=== PATIENT | female | born 1950 | race Caucasian/White ===

== ENCOUNTER 2017-12-11 09:21 | Inpatient (IN) | payer MEDICARE, MEDICAID ==
[~2017-12-11] VITALS: Ht 175.3 cm; Wt 153.1 kg
[2017-12-11] VITALS (14 sets, daily range): BP systolic 62–126; BP diastolic 30–50
[2017-12-11 09:45] LABS: BASOPHILS % (AUTO) 0 % (0-1); EOSINOPHILS # (AUTO) 0.1 X10'3 (0-0.9); EOSINOPHILS % (AUTO) 0.3 % (0-6); HEMATOCRIT 27.8 % (35.0-45.0); HEMOGLOBIN 8.8 g/dl (12.0-16.0); LYMPHOCYTES # (AUTO) 0.6 X10'3 (1.1-4.8); LYMPHOCYTES % (AUTO) 2.2 % (21-51); MEAN CORPUSCULAR HEMOGLOBIN 27.4 PG (27.0-31.0); MEAN CORPUSCULAR HGB CONC 31.8 % (33.0-36.5); MEAN CORPUSCULAR VOLUME 86.4 FL (78-98); MEAN PLATELET VOLUME 9.1 FL (7.4-10.4); MONOCYTES # (AUTO) 0.7 X10'3 (0-0.9); MONOCYTES % (AUTO) 2.6 % (2-12); NEUTROPHILS # (AUTO) 25.3 X10'3 (1.8-7.7); NEUTROPHILS % (AUTO) 94.9 % (42-75); PLATELET COUNT 118 X10'3 (140-440); RED BLOOD COUNT 3.22 X10'6 (4.20-5.60); RED CELL DISTRIBUTION WIDTH 18.7 % (11.5-14.5)
[2017-12-11 09:46] LABS: WHITE BLOOD COUNT 26.6 X10'3 (4.5-11.0)
[2017-12-11 09:56] LABS: INR 1.1 INR; PARTIAL THROMBOPLASTIN TIME 27 SECONDS (22-32); PROTHROMBIN TIME 11.4 SECONDS (9.0-12.0)
[2017-12-11] MEDS ORDERED: cefTAZidime inj 2 GM in normal saline 100ml IV soln 100 ML IV STA (09:59)
[2017-12-11] MEDS ORDERED: vancomycin/NS 1 GM ADD-VANTAGE 250 ML IV ONE ×2 (10:00→16:45)
[2017-12-11 10:02] LABS: ANISOCYTOSIS 2+; PLATELET ESTIMATE DECREASED; POIKILOCYTOSIS FEW; TOTAL CELLS COUNTED 100
[2017-12-11] MEDS ORDERED: pantoprazole 40 MG vial IV ONE (10:05)
[2017-12-11 10:14] LABS: ALBUMIN 2.3 G/DL (3.4-5.0); ALBUMIN/GLOBULIN RATIO 0.7 (1.1-1.5); ALKALINE PHOSPHATASE 55 IU/L (46-116); ANION GAP 20 (8-16); BILIRUBIN,TOTAL 0.6 MG/DL (0.1-1.0); CALCIUM 7.8 MG/DL (8.5-10.1); CHLORIDE 107 MMOL/L (99-107); CREATININE 6.86 MG/DL (0.40-0.90); GLUCOSE 102 MG/DL (70-104); POTASSIUM 5.3 MMOL/L (3.5-5.1); SODIUM 152 MMOL/L (135-145); TOTAL CARBON DIOXIDE 25.2 MMOL/L (24-32); TOTAL PROTEIN 5.7 G/DL (6.4-8.2); eGFR 6 ML/MIN
[2017-12-11 10:15] LABS: ALANINE AMINOTRANSFERASE 1944 U/L (12-78); ASPARTATE AMINO TRANSFERASE 1918 U/L (10-37); BLOOD UREA NITROGEN 179 MG/DL (7-18); BUN/CREATININE RATIO 26.1 (6.6-38.0); PHOSPHORUS 9.9 MG/DL (2.3-4.5)
[2017-12-11 10:26] LABS: ABG BASE EXCESS -6.9 mmol/L (-2.0-3.0); ABG HCO3 22.6 mmol/L (22.0-26.0); ABG OXYGEN SATURATION 99.1 % (95-98); ABG PH (T) 7.121 (7.350-7.450); ABG PO2 (T) 411.1 mmHg (83-108); ALLEN'S TEST Positive; FCOHb 0.3 % (0.5-1.5); FMetHb 0.1 % (0.3-1.12); FO2Hb 98.7 % (94-100); MINUTE VOLUME 10 L/min; PEEP 5 cm H2O; RESPIRATORY RATE 20 b/min; RESPIRATORY RATE (OBSERVED) 22 b/min; TIDAL VOLUME 400 mL; TOTAL HEMOGLOBIN 9.1 G/dl (12.0-16.0)
[2017-12-11] MEDS ORDERED: ondansetron/PF 4mg/2ml inj IV PRN (11:00)
[2017-12-11] MEDS ORDERED: acetaminophen 325mg tablet PO PRN ×2 (11:00)
[2017-12-11] MEDS ORDERED: ipratropium/albuterol 3ml nebule NEB PRN (11:00)
[2017-12-11 12:13] LABS: AMYLASE 331 U/L (25-115); LIPASE 187 U/L (73-393)
[2017-12-11] MEDS: NORepinephrine 8mg/ 250ml NS 250 ML IV SCH ×2 (12:13→22:24)
[2017-12-11 12:15] LABS: ABG OXYGEN SATURATION 97.6 % (95-98); ABG PCO2 (T) 112.4 mmHg (32.0-45.0); ABG PO2 (T) 158.3 mmHg (83-108); FCOHb 0.3 % (0.5-1.5); FMetHb 0.1 % (0.3-1.12); FO2Hb 97.2 % (94-100); MINUTE VOLUME 12 L/min; PEEP 5 cm H2O; RESPIRATORY RATE 24 b/min; RESPIRATORY RATE (OBSERVED) 30 b/min; TIDAL VOLUME 450 mL; TOTAL HEMOGLOBIN 10.2 G/dl (12.0-16.0)
[2017-12-11] MEDS ORDERED: normal saline 1000ML IV soln IVB ONE ×2 (12:20→13:55)
[2017-12-11] MEDS ORDERED: VECuronium br 10mg inj. IV ONE (12:45)
[2017-12-11] MEDS ORDERED: calcium chloride 100 MG/1 ML inj IV ONE ×2 (12:45→15:00)
[2017-12-11] MEDS ORDERED: calcium chloride inj. 1,000 MG in normal saline 100ml IV soln 90 ML IV ONE (12:50)
[2017-12-11] MEDS: EPICAL 5MG & 1000MG PER 250ML INFUSION IV PRN ×6 (13:36→18:36)
[2017-12-11] MEDS: vasopressin inj. 60 UNIT in normal saline 100ml IV soln 97 ML IV SCH (14:53)
[2017-12-11] MEDS ORDERED: atropine 0.1mg/ml 10ml syringe ONE (15:00)
[2017-12-11] MEDS ORDERED: epiNEPHrine 0.1mg/ml 10ml syringe ONE (15:00)
[2017-12-11] MEDS ORDERED: NORepinephrine 1 mg/ml inj IV ONE (15:00)
[2017-12-11] MEDS ORDERED: epiNEPHrine 1 mg/ml 30ml MDV ONE (15:00)
[2017-12-11] MEDS ORDERED: sodium bicarbonate (8.4%) 1 mEq/ml syringe ONE (15:00)
[2017-12-11 15:21] LABS: ABG BASE EXCESS -16.4 mmol/L (-2.0-3.0); ABG HCO3 12.5 mmol/L (22.0-26.0); ABG OXYGEN SATURATION 97.6 % (95-98); ABG PH (T) 7.067 (7.350-7.450); ABG PO2 (T) 134.7 mmHg (83-108); FCOHb 0.3 % (0.5-1.5); FMetHb 0.4 % (0.3-1.12); FO2Hb 96.9 % (94-100); MINUTE VOLUME 17 L/min; PATIENT TEMPERATURE 37.5; PEEP 5 cm H2O; RESPIRATORY RATE 26 b/min; RESPIRATORY RATE (OBSERVED) 26 b/min; TIDAL VOLUME 600 mL; TOTAL HEMOGLOBIN 7.7 G/dl (12.0-16.0)
[2017-12-11] MEDS ORDERED: dextrose 50%-water 50ml dispensing syringe IV ONE (15:49)
[2017-12-11] MEDS: pantoprazole 40MG/NS 100ML BAG 100 ML IV SCH ×3 (16:00→21:24)
[2017-12-11] MEDS ORDERED: dextrose 50%-water 50ml dispensing syringe IV PRN ×2 (16:00)
[2017-12-11] MEDS ORDERED: sodium chloride inj. 154 MEQ in Dextrose 10%-water IV solution 961.5 ML IV SCH (16:00)
[2017-12-11] MEDS ORDERED: heparin 1,000unit/ml 10ml vial 10 ML IV ONE (16:07)
[2017-12-11] MEDS ORDERED: albumin (human) 25% 100ml IV 100 ML IV PRN (16:10)
[2017-12-11] MEDS ORDERED: vancomycin/NS 1 GM ADD-VANTAGE 250 ML IV SCH (16:15)
[2017-12-11] MEDS ORDERED: heparin 1,000 units/ml 10ml inj HE ONE ×2 (16:15)
[2017-12-11] MEDS: DOBUTamine-DoBUTrex 500mg/D5W 250 ML IV SCH (18:10)
[2017-12-11] MEDS: Dextrose 10%-water IV solution 1,000 ML IV SCH (18:13)
[2017-12-11 18:42] LABS: HIV ANTIBODY 1&2 RAPID NON-REACTIVE (Neg)
[2017-12-11] MEDS: docusate sod 100mg capsule PO SCH (20:00)
[2017-12-11] MEDS: heparin, porcine 5000 units/ml vial SQ SCH (21:24)
[2017-12-11] MEDS: hydrocortisone sod succ/PF 100mg/2ml inj. IV SCH (21:24)
[2017-12-11] MEDS: mineral oil/petrolatum ophthal oint EACHEYE SCH (21:25)
[2017-12-12] VITALS (31 sets, daily range): BP systolic 106–137; BP diastolic 36–59
[2017-12-12 00:46] LABS: OXYGEN SATURATION (MIXED VEN) 44.5 % (60-80); PO2 MIXED VENOUS (TEMP COR) 27.5 mmHg (35-46)
[2017-12-12 00:46] LABS: ABG BASE EXCESS -9.8 mmol/L (-2.0-3.0); ABG HCO3 18.1 mmol/L (22.0-26.0); ABG OXYGEN SATURATION 94.9 % (95-98); ABG PCO2 (T) 48.6 mmHg (32.0-45.0); ABG PH (T) 7.186 (7.350-7.450); FCOHb 0.3 % (0.5-1.5); FMetHb 0.2 % (0.3-1.12); FO2Hb 94.4 % (94-100); MINUTE VOLUME 17 L/min; PATIENT TEMPERATURE 36.6; PEEP 5 cm H2O; RESPIRATORY RATE 26 b/min; RESPIRATORY RATE (OBSERVED) 30 b/min; TIDAL VOLUME 500 mL; TOTAL HEMOGLOBIN 9.3 G/dl (12.0-16.0)
[2017-12-12 01:34] LABS: ALBUMIN 2.2 G/DL (3.4-5.0); ALBUMIN/GLOBULIN RATIO 0.7 (1.1-1.5); ALKALINE PHOSPHATASE 78 IU/L (46-116); ANION GAP 19 (8-16); BLOOD UREA NITROGEN 142 MG/DL (7-18); BUN/CREATININE RATIO 26.2 (6.6-38.0); CALCIUM 7.6 MG/DL (8.5-10.1); CHLORIDE 106 MMOL/L (99-107); CREATININE 5.41 MG/DL (0.40-0.90); GLUCOSE 174 MG/DL (70-104); MAGNESIUM 2.5 MG/DL (1.5-2.4); PHOSPHORUS 7.7 MG/DL (2.3-4.5); SODIUM 146 MMOL/L (135-145); TOTAL CARBON DIOXIDE 21.5 MMOL/L (24-32); TOTAL PROTEIN 5.3 G/DL (6.4-8.2); eGFR 8 ML/MIN
[2017-12-12 01:47] LABS: ALANINE AMINOTRANSFERASE 2449 U/L (12-78); ASPARTATE AMINO TRANSFERASE 2220 U/L (10-37)
[2017-12-12 01:50] LABS: VANCOMYCIN,TROUGH 21.4 UG/ML (6.0-14.0)
[2017-12-12] MEDS: hydrocortisone sod succ/PF 100mg/2ml inj. IV SCH ×4 (02:02→20:46)
[2017-12-12] MEDS: mineral oil/petrolatum ophthal oint EACHEYE SCH ×4 (02:02→20:46)
[2017-12-12] MEDS: pantoprazole 40MG/NS 100ML BAG 100 ML IV SCH ×5 (02:02→22:36)
[2017-12-12 02:06] LABS: BASOPHILS % (AUTO) 0 % (0-1); EOSINOPHILS % (AUTO) 0 % (0-6); HEMATOCRIT 24.4 % (35.0-45.0); HEMOGLOBIN 7.9 g/dl (12.0-16.0); LYMPHOCYTES # (AUTO) 0.5 X10'3 (1.1-4.8); LYMPHOCYTES % (AUTO) 2.3 % (21-51); MEAN CORPUSCULAR HEMOGLOBIN 27.4 PG (27.0-31.0); MEAN CORPUSCULAR HGB CONC 32.3 % (33.0-36.5); MEAN CORPUSCULAR VOLUME 85.1 FL (78-98); MEAN PLATELET VOLUME 10.1 FL (7.4-10.4); MONOCYTES # (AUTO) 0.8 X10'3 (0-0.9); NEUTROPHILS # (AUTO) 18.9 X10'3 (1.8-7.7); NEUTROPHILS % (AUTO) 93.7 % (42-75); PLATELET COUNT 125 X10'3 (140-440); RED BLOOD COUNT 2.87 X10'6 (4.20-5.60); RED CELL DISTRIBUTION WIDTH 18.7 % (11.5-14.5); WHITE BLOOD COUNT 20.1 X10'3 (4.5-11.0)
[2017-12-12 02:33] LABS: NUCLEATED RED BLOOD CELLS 2 /100WBC (0-0); TOTAL CELLS COUNTED 100
[2017-12-12 02:34] LABS: ANISOCYTOSIS 2+; HYPOCHROMASIA 1+; PLATELET ESTIMATE DECREASED
[2017-12-12 02:36] LABS: ELLIPTOCYTES 1+; TARGET CELLS FEW
[2017-12-12] MEDS: VANCOMYCIN LEVEL IV SCH (03:00)
[2017-12-12] MEDS: NORepinephrine 8mg/ 250ml NS 250 ML IV SCH ×2 (04:18→14:24)
[2017-12-12 07:51] LABS: OXYGEN SATURATION (MIXED VEN) 72.7 % (60-80); PO2 MIXED VENOUS (TEMP COR) 42.1 mmHg (35-46)
[2017-12-12] MEDS: docusate sod 100mg capsule PO SCH ×2 (08:00→20:00)
[2017-12-12] MEDS ORDERED: vancomycin/NS 1 GM ADD-VANTAGE 250 ML IV PRN (08:00)
[2017-12-12] MEDS: heparin, porcine 5000 units/ml vial SQ SCH ×2 (08:00→20:00)
[2017-12-12] MEDS ORDERED: pantoprazole 40 MG vial IV SCH (08:00)
[2017-12-12 08:01] LABS: ABG BASE EXCESS -9.9 mmol/L (-2.0-3.0); ABG HCO3 18.5 mmol/L (22.0-26.0); ABG OXYGEN SATURATION 95.1 % (95-98); ABG PCO2 (T) 50.8 mmHg (32.0-45.0); ABG PH (T) 7.175 (7.350-7.450); ABG PO2 (T) 89.4 mmHg (83-108); FCOHb 0.3 % (0.5-1.5); FMetHb 0.2 % (0.3-1.12); FO2Hb 94.6 % (94-100); MINUTE VOLUME 14 L/min; PATIENT TEMPERATURE 36.2; PEEP 5 cm H2O; RESPIRATORY RATE 26 b/min; RESPIRATORY RATE (OBSERVED) 26 b/min; TIDAL VOLUME 500 mL; TOTAL HEMOGLOBIN 9.9 G/dl (12.0-16.0)
[2017-12-12 08:02] LABS: BASOPHILS % (AUTO) 0.1 % (0-1); EOSINOPHILS % (AUTO) 0 % (0-6); HEMATOCRIT 28.4 % (35.0-45.0); HEMOGLOBIN 9.2 g/dl (12.0-16.0); LYMPHOCYTES # (AUTO) 0.3 X10'3 (1.1-4.8); LYMPHOCYTES % (AUTO) 2.2 % (21-51); MEAN CORPUSCULAR HGB CONC 32.2 % (33.0-36.5); MEAN PLATELET VOLUME 9.8 FL (7.4-10.4); MONOCYTES # (AUTO) 0.4 X10'3 (0-0.9); MONOCYTES % (AUTO) 3.2 % (2-12); NEUTROPHILS # (AUTO) 12.2 X10'3 (1.8-7.7); NEUTROPHILS % (AUTO) 94.5 % (42-75); PLATELET COUNT 98 X10'3 (140-440); RED BLOOD COUNT 3.26 X10'6 (4.20-5.60); RED CELL DISTRIBUTION WIDTH 17.5 % (11.5-14.5); WHITE BLOOD COUNT 12.9 X10'3 (4.5-11.0)
[2017-12-12] MEDS: midazolam 100mg in NS 100ml 100 ML IV PRN (08:13)
[2017-12-12] MEDS: FENTANYL-0.9 % NACL/PF 100 ML IV PRN ×2 (08:14→21:46)
[2017-12-12 08:20] LABS: ALBUMIN 2.2 G/DL (3.4-5.0); ANION GAP 19 (8-16); CALCIUM 7.2 MG/DL (8.5-10.1); CHLORIDE 105 MMOL/L (99-107); GLUCOSE 260 MG/DL (70-104); MAGNESIUM 2.7 MG/DL (1.5-2.4); POTASSIUM 5.2 MMOL/L (3.5-5.1); SODIUM 145 MMOL/L (135-145); TOTAL CARBON DIOXIDE 20.6 MMOL/L (24-32); eGFR 7 ML/MIN
[2017-12-12 08:21] LABS: BLOOD UREA NITROGEN 158 MG/DL (7-18); BUN/CREATININE RATIO 27.7 (6.6-38.0)
[2017-12-12 08:23] LABS: TROPONIN I 8.32 NG/ML (0.0-0.05)
[2017-12-12 08:26] LABS: PLATELET ESTIMATE DECREASED; TOTAL CELLS COUNTED 100
[2017-12-12 08:27] LABS: ANISOCYTOSIS 2+; BURR CELLS 1+; ELLIPTOCYTES FEW; POLYCHROMASIA 1+
[2017-12-12] MEDS: nystatin 15 GM powder TP SCH ×3 (09:12→21:15)
[2017-12-12] MEDS: EPICAL 5MG & 1000MG PER 250ML INFUSION IV PRN ×3 (09:12)
[2017-12-12] MEDS ORDERED: albumin (human) 25% 100ml IV 100 ML IV PRN (09:40)
[2017-12-12] MEDS ORDERED: heparin 1,000 units/ml 10ml inj HE ONE ×2 (09:45)
[2017-12-12] MEDS ORDERED: mannitol 20% 250ml solution IV ONE (09:55)
[2017-12-12] MEDS: DOBUTamine-DoBUTrex 500mg/D5W 250 ML IV SCH (11:26)
[2017-12-12] MEDS ORDERED: ESCI20TA38 PO (14:22)
[2017-12-12] MEDS ORDERED: PRED10TA23 PO (14:22)
[2017-12-12] MEDS ORDERED: LEVO112T5 PO (14:22)
[2017-12-12] MEDS ORDERED: CARV-50 PO (14:23)
[2017-12-12] MEDS ORDERED: CLON1TAB4 PO (14:26)
[2017-12-12] MEDS ORDERED: LORA10TA7 PO (14:26)
[2017-12-12] MEDS ORDERED: POTA8TAB8 PO (14:26)
[2017-12-12] MEDS ORDERED: RISP1TAB13 PO (14:26)
[2017-12-12 14:27] LABS: ALBUMIN 2.1 G/DL (3.4-5.0); ANION GAP 19 (8-16); CALCIUM 7.1 MG/DL (8.5-10.1); CHLORIDE 105 MMOL/L (99-107); CREATININE 5.96 MG/DL (0.40-0.90); GLUCOSE 256 MG/DL (70-104); MAGNESIUM 2.7 MG/DL (1.5-2.4); POTASSIUM 5.1 MMOL/L (3.5-5.1); SODIUM 144 MMOL/L (135-145); TOTAL CARBON DIOXIDE 20.2 MMOL/L (24-32); eGFR 7 ML/MIN
[2017-12-12 14:28] LABS: BLOOD UREA NITROGEN 163 MG/DL (7-18); BUN/CREATININE RATIO 27.3 (6.6-38.0)
[2017-12-12 14:31] LABS: TROPONIN I 8.47 NG/ML (0.0-0.05)
[2017-12-12 15:41] LABS: ABG BASE EXCESS -9.5 mmol/L (-2.0-3.0); ABG HCO3 17.3 mmol/L (22.0-26.0); ABG OXYGEN SATURATION 97.5 % (95-98); ABG PCO2 (T) 38.9 mmHg (32.0-45.0); ABG PH (T) 7.257 (7.350-7.450); ABG PO2 (T) 108.7 mmHg (83-108); FCOHb 0.3 % (0.5-1.5); FMetHb 0.2 % (0.3-1.12); MINUTE VOLUME 14 L/min; PATIENT TEMPERATURE 35.6; PEEP 5 cm H2O; RESPIRATORY RATE 26 b/min; RESPIRATORY RATE (OBSERVED) 26 b/min; TIDAL VOLUME 500 mL; TOTAL HEMOGLOBIN 9.3 G/dl (12.0-16.0)
[2017-12-12 15:46] LABS: OXYGEN SATURATION (MIXED VEN) 80.8 % (60-80)
[2017-12-12] MEDS ORDERED: dextrose 50%-water 50ml dispensing syringe IV PRN (15:50)
[2017-12-12] MEDS: Dextrose 10%-water IV solution 1,000 ML IV SCH (17:25)
[2017-12-12] MEDS: insulin regular, human 100 UNITS in normal saline 100ml IV soln 99 ML IV SCH ×2 (19:34)
[2017-12-12] MEDS: lactobacillus rhamnosus 10,000 MMU CELLS/CAPSULE PO SCH (20:00)
[2017-12-12] MEDS: vasopressin inj. 60 UNIT in normal saline 100ml IV soln 97 ML IV SCH (20:48)
[2017-12-12 22:35] LABS: OXYGEN SATURATION (MIXED VEN) 63.3 % (60-80); PO2 MIXED VENOUS (TEMP COR) 28.8 mmHg (35-46)
[2017-12-12 22:41] LABS: ABG BASE EXCESS -9.4 mmol/L (-2.0-3.0); ABG OXYGEN SATURATION 97.4 % (95-98); ABG PCO2 (T) 35.9 mmHg (32.0-45.0); ABG PH (T) 7.284 (7.350-7.450); ABG PO2 (T) 106.2 mmHg (83-108); FCOHb 0.3 % (0.5-1.5); FMetHb 0.1 % (0.3-1.12); MINUTE VOLUME 14 L/min; PATIENT TEMPERATURE 35.2; PEEP 5 cm H2O; RESPIRATORY RATE 24 b/min; RESPIRATORY RATE (OBSERVED) 24 b/min; TIDAL VOLUME 500 mL; TOTAL HEMOGLOBIN 11.8 G/dl (12.0-16.0)
[2017-12-12 23:01] LABS: ANION GAP 17 (8-16); CALCIUM 7.1 MG/DL (8.5-10.1); CHLORIDE 105 MMOL/L (99-107); CREATININE 5.69 MG/DL (0.40-0.90); GLUCOSE 206 MG/DL (70-104); MAGNESIUM 2.5 MG/DL (1.5-2.4); POTASSIUM 4.6 MMOL/L (3.5-5.1); SODIUM 144 MMOL/L (135-145); TOTAL CARBON DIOXIDE 21.7 MMOL/L (24-32); eGFR 7 ML/MIN
[2017-12-12 23:02] LABS: BLOOD UREA NITROGEN 154 MG/DL (7-18); BUN/CREATININE RATIO 27.1 (6.6-38.0)
[2017-12-12 23:04] LABS: TROPONIN I 9.81 NG/ML (0.0-0.05)
[2017-12-13] VITALS (14 sets, daily range): BP systolic 101–134; BP diastolic 45–58
[2017-12-13] MEDS: VANCOMYCIN LEVEL IV SCH (03:00)
[2017-12-13] MEDS: DOBUTamine-DoBUTrex 500mg/D5W 250 ML IV SCH (03:22)
[2017-12-13] MEDS: mineral oil/petrolatum ophthal oint EACHEYE SCH ×2 (03:22→08:37)
[2017-12-13] MEDS: hydrocortisone sod succ/PF 100mg/2ml inj. IV SCH ×2 (03:25→08:37)
[2017-12-13] MEDS: NORepinephrine 8mg/ 250ml NS 250 ML IV SCH (03:28)
[2017-12-13 04:50] LABS: ABG BASE EXCESS -7.7 mmol/L (-2.0-3.0); ABG HCO3 18.6 mmol/L (22.0-26.0); ABG OXYGEN SATURATION 97.4 % (95-98); ABG PCO2 (T) 37.7 mmHg (32.0-45.0); ABG PH (T) 7.302 (7.350-7.450); ABG PO2 (T) 100.5 mmHg (83-108); FCOHb 0.3 % (0.5-1.5); FMetHb 0.1 % (0.3-1.12); PATIENT TEMPERATURE 35.2; PEEP 5 cm H2O; RESPIRATORY RATE 26 b/min; RESPIRATORY RATE (OBSERVED) 26 b/min; TIDAL VOLUME 500 mL; TOTAL HEMOGLOBIN 11.2 G/dl (12.0-16.0)
[2017-12-13 04:52] LABS: INR 1.2 INR; PARTIAL THROMBOPLASTIN TIME 32 SECONDS (22-32); PROTHROMBIN TIME 12.8 SECONDS (9.0-12.0)
[2017-12-13 04:55] LABS: OXYGEN SATURATION (MIXED VEN) 39.7 % (60-80); PO2 MIXED VENOUS (TEMP COR) 22.5 mmHg (35-46)
[2017-12-13 05:15] LABS: HEMATOCRIT 26.5 % (35.0-45.0); HEMOGLOBIN 8.9 g/dl (12.0-16.0); MEAN CORPUSCULAR HEMOGLOBIN 28.6 PG (27.0-31.0); MEAN CORPUSCULAR HGB CONC 33.6 % (33.0-36.5); MEAN CORPUSCULAR VOLUME 85.2 FL (78-98); MEAN PLATELET VOLUME 10.2 FL (7.4-10.4); PLATELET COUNT 73 X10'3 (140-440); RED BLOOD COUNT 3.11 X10'6 (4.20-5.60); RED CELL DISTRIBUTION WIDTH 17.8 % (11.5-14.5); WHITE BLOOD COUNT 4.3 X10'3 (4.5-11.0)
[2017-12-13 05:16] LABS: ALBUMIN/GLOBULIN RATIO 0.6 (1.1-1.5); ALKALINE PHOSPHATASE 85 IU/L (46-116); ANION GAP 20 (8-16); ASPARTATE AMINO TRANSFERASE 882 U/L (10-37); BILIRUBIN,TOTAL 1.1 MG/DL (0.1-1.0); CHLORIDE 106 MMOL/L (99-107); CREATININE 5.58 MG/DL (0.40-0.90); GLUCOSE 125 MG/DL (70-104); MAGNESIUM 2.7 MG/DL (1.5-2.4); PHOSPHORUS 6.7 MG/DL (2.3-4.5); POTASSIUM 4.4 MMOL/L (3.5-5.1); SODIUM 146 MMOL/L (135-145); TOTAL CARBON DIOXIDE 19.8 MMOL/L (24-32); TOTAL PROTEIN 5.4 G/DL (6.4-8.2); VANCOMYCIN,RANDOM 16.2 UG/ML; eGFR 8 ML/MIN
[2017-12-13 05:17] LABS: ALANINE AMINOTRANSFERASE 1748 U/L (12-78); BLOOD UREA NITROGEN 166 MG/DL (7-18); BUN/CREATININE RATIO 29.7 (6.6-38.0)
[2017-12-13] MEDS: pantoprazole 40MG/NS 100ML BAG 100 ML IV SCH ×3 (05:22→10:52)
[2017-12-13] MEDS: EPICAL 5MG & 1000MG PER 250ML INFUSION IV PRN ×3 (05:22)
[2017-12-13 07:11] LABS: NUCLEATED RED BLOOD CELLS 2 /100WBC (0-0); PLATELET ESTIMATE DECREASED; TOTAL CELLS COUNTED 100
[2017-12-13 07:12] LABS: ANISOCYTOSIS 2+; BURR CELLS 1+; ELLIPTOCYTES FEW; MICROCYTOSIS 1+; POIKILOCYTOSIS FEW; POLYCHROMASIA 1+
[2017-12-13] MEDS: heparin, porcine 5000 units/ml vial SQ SCH (08:00)
[2017-12-13] MEDS: lactobacillus rhamnosus 10,000 MMU CELLS/CAPSULE PO SCH (08:00)
[2017-12-13] MEDS: docusate sod 100mg capsule PO SCH (08:00)
[2017-12-13] MEDS: midazolam 100mg in NS 100ml 100 ML IV PRN (08:10)
[2017-12-13] MEDS ORDERED: piperacillin-tazo 2.25gm/50ml 50 ML IV SCH (08:20)
[2017-12-13] MEDS: nystatin 15 GM powder TP SCH ×2 (08:37→12:07)
[2017-12-13] MEDS: insulin regular, human 100 UNITS in normal saline 100ml IV soln 99 ML IV SCH ×2 (10:59)
[2017-12-13] MEDS ORDERED: bisacodyl 10mg suppository rectal RC PRN (11:00)
[2017-12-13] MEDS ORDERED: lactulose 20gm/30ml cup PO PRN (11:00)
[2017-12-13 12:01] LABS: ABG BASE EXCESS -9.2 mmol/L (-2.0-3.0); ABG HCO3 17.3 mmol/L (22.0-26.0); ABG OXYGEN SATURATION 95.1 % (95-98); ABG PCO2 (T) 37.6 mmHg (32.0-45.0); ABG PH (T) 7.273 (7.350-7.450); ABG PO2 (T) 83.4 mmHg (83-108); FCOHb 0.3 % (0.5-1.5); FMetHb 0.2 % (0.3-1.12); FO2Hb 94.6 % (94-100); MINUTE VOLUME 14 L/min; PATIENT TEMPERATURE 35.7; PEEP 5 cm H2O; RESPIRATORY RATE 26 b/min; RESPIRATORY RATE (OBSERVED) 26 b/min; TIDAL VOLUME 500 mL; TOTAL HEMOGLOBIN 9.3 G/dl (12.0-16.0)
[2017-12-13 12:01] LABS: OXYGEN SATURATION (MIXED VEN) 70.5 % (60-80)
[2017-12-13] MEDS: FENTANYL-0.9 % NACL/PF 100 ML IV PRN (12:07)
[2017-12-13] MEDS ORDERED: LORazepam 2 mg/ml vial IV PRN (12:50)
[2017-12-13] MEDS ORDERED: morphine 10mg/ml inj. IV PRN (12:50)
[2017-12-13] MEDS ORDERED: morphine 4 MG/ML inj SYRINge IV PRN (12:53)
[2017-12-13 13:09] LABS: HBSAG SCREEN Negative (Negative); HEPATITIS C ANTIBODY <0.1 s/co ratio (0.0-0.9)
[2017-12-14 13:26] LABS: A/G RATIO 1.1 (0.7-1.7); ALBUMIN 2.5 g/dL (2.9-4.4); BETA GLOBULIN 0.5 g/dL (0.7-1.3); GAMMA GLOBULIN 0.6 g/dL (0.4-1.8); GLOBULIN, TOTAL 2.2 g/dL (2.2-3.9); M-SPIKE Not Observed g/dL (Not Observed); PROTEIN, TOTAL, SERUM 4.7 g/dL (6.0-8.5)
[2017-12-16] MEDS ORDERED: methylnaltrexone br 12mg/0.6ml inj***SubQ only SQ SCH (08:00)
== END 2017-12-13 15:49 | disposition expired | DRG 871 ==
LOC: ER 09:21 → ED HOLD 10:58 → EDBEDREQ 12:56 → CICU 2S 14:29
PROVIDERS: ADMIT Internal Medicine Critical Care Medicine; ATTEND Internal Medicine Critical Care Medicine
PROC: 5A1945Z Respiratory Ventilation, 24-96 Consecutive Hours (ICD-10-PCS; principal; 2017-12-11)
PROC: 5A12012 Performance of Cardiac Output, Single, Manual (ICD-10-PCS; 2017-12-11)
PROC: 5A1D70Z Performance of Urinary Filtration, Intermittent, Less than 6 Hours Per Day (ICD-10-PCS; 2017-12-11)
PROC: 04HY32Z Insertion of Monitoring Device into Lower Artery, Percutaneous Approach (ICD-10-PCS; 2017-12-11)
PROC: 30233N1 Transfusion of Nonautologous Red Blood Cells into Peripheral Vein, Percutaneous Approach (ICD-10-PCS; 2017-12-12)
PROC: 5A1D70Z Performance of Urinary Filtration, Intermittent, Less than 6 Hours Per Day (ICD-10-PCS; 2017-12-12)
DX: A41.9 Sepsis, unspecified organism (principal); J18.9 Pneumonia, unspecified organism; J96.21 Acute and chronic respiratory failure with hypoxia; I46.9 Cardiac arrest, cause unspecified; R65.21 Severe sepsis with septic shock; Z99.11 Dependence on respirator [ventilator] status; G93.1 Anoxic brain damage, not elsewhere classified; N17.9 Acute kidney failure, unspecified; N18.4 Chronic kidney disease, stage 4 (severe); G93.41 Metabolic encephalopathy; K92.2 Gastrointestinal hemorrhage, unspecified; E87.0 Hyperosmolality and hypernatremia; Z68.42 Body mass index [BMI] 45.0-49.9, adult; E66.2 Morbid (severe) obesity with alveolar hypoventilation; E11.65 Type 2 diabetes mellitus with hyperglycemia; Z93.0 Tracheostomy status; E11.22 Type 2 diabetes mellitus with diabetic chronic kidney disease; I48.91 Unspecified atrial fibrillation; H55.00 Unspecified nystagmus; I12.9 Hypertensive chronic kidney disease with stage 1 through stage 4 chronic kidney disease, or unspecified chronic kidney disease; Z51.5 Encounter for palliative care; Z86.11 Personal history of tuberculosis; Z87.891 Personal history of nicotine dependence; Z98.2 Presence of cerebrospinal fluid drainage device
CPT/HCPCS: 36415; 36569; 36600; 70450; 71045; 80048; 80053; 80202; 82150; 82803; 82810; 82948; 83605; 83690; 83735; 83880; 84100; 84145; 84155; 84165; 84484; 85018; 85025; 85610; 85730; 86703; 86803; 86885; 86900; 86901; 86920; 87040; 87070; 87077; 87186; 87340; 93005; 93308; 94002; 94003; 94760; 96365; 96375; 99291; 99292; A4623; A6213; A6449; A7525; C1758; C9113; G0257; J0171; J0461; J0713; J1250; J1644; J1720; J1815; J2150; J2250; J2543; J3370; J3490; J7030; J7131; P9016